=== PATIENT | female | born 2000 | race Two or more races ===

== ENCOUNTER 2022-07-31 23:51 | Emergency (ER) | payer OTHER ==
[2022-08-01 00:24] LABS: BILIRUBIN,URINE NEGATIVE (NEGATIVE); GLUCOSE, URINE (UA) NEGATIVE (NEGATIVE); KETONES,URINE (UA) NEGATIVE (NEGATIVE); LEUKOCYTE ESTERASE, URINE NEGATIVE (NEGATIVE); NITRITE,URINE NEGATIVE (NEGATIVE); OCCULT BLOOD,URINE NEGATIVE (NEGATIVE); PROTEIN,URINE NEGATIVE (NEGATIVE); UROBILINOGEN,URINE 0.2 (NORMAL) E.U./dL (NORMAL)
[2022-08-01 00:31] LABS: CLARITY,URINE CLEAR (CLEAR); HCG UR QUAL NEGATIVE
[2022-08-01] MEDS ORDERED: DICYCLOMINE 10 MG CAPSULE PO STA (01:37)
--- NOTE | 2022-08-01 01:40 | ED Physician Documentation ---
History of Present Illness - Stated complaint Stated Complaint: FEMALE - Chief complaint Chief Complaint: Abd Pain - History obtained from History obtained from: Patient - Additonal information Additional information: 21-year-old woman with history of lactose intolerance, otherwise healthy, presents with left upper quadrant abdominal cramping pain intermittent, gradual onset, for the past 4 days, worse with bending, radiating to the lower back, associated with nausea and dysuria. Patient took Motrin without any relief. Denies vomiting or diarrhea fever or hematuria. patient did have creamer this week but otherwise no dairy products. Review of Systems Ten Systems: 10 systems reviewed and negative Constitutional: denies: Fever, Chills GI: reports: Abdominal Pain, Nausea, Constipation. denies: Vomiting, Diarrhea : reports: Dysuria. denies: Hematuria PD PAST MEDICAL HISTORY - Past Medical History Past Medical History: Yes Cardiovascular: None Respiratory: None Neuro: None Endocrine/Autoimmune: None GI: None ESCAPEMENT MAKER: None : None HEENT: None Psych: Depression Musculoskeletal: None Derm: None - Past Surgical History Past Surgical History: No - Present Medications Home Medications: Ambulatory Orders Medication Instructions Recorded Confirmed Dicyclomine [Bentyl] 10 mg PO QID PRN #20 tab 08/01/22 FLUoxetine [PROzac] 40 mg PO DAILY 08/01/22 08/01/22 - Allergies Allergies/Adverse Reactions: Allergies Allergy/AdvReac Type Severity Reaction Status Date / Time No Known Drug Allergies Allergy Verified 08/01/22 00:09 - Social History Does the pt smoke?: No Smoking Status: Never smoker Does the pt drink ETOH?: Yes Does the pt have substance abuse?: No - Immunizations Immunizations are current?: Yes - POLST Patient has POLST: No PD ED PE NORMAL - Vitals Vital signs reviewed: Yes - General General: Alert and oriented X 3, No acute distress, Well developed/nourished - HEENT HEENT: Atraumatic, PERRL, EOMI - Neck Neck: Supple, no meningeal sign - Cardiac Cardiac: RRR - Respiratory Respiratory: No respiratory distress, Clear bilaterally - Abdomen Abdomen: Non tender, Non distended Results - Vitals Vitals: Vital Signs - 24 hr 08/01/22 08/01/22 00:06 00:24 Temperature 36.6 C Heart Rate 98 Respiratory 18 18 Rate Blood Pressure 154/100 H O2 Saturation 100 Oxygen O2 Source Room air - Labs Labs: Laboratory Tests 08/01/22 08/01/22 00:00 00:00 Urine Color YELLOW Urine Clarity CLEAR Urine pH 6.0 Ur Specific [place] <=1.005 Urine Protein NEGATIVE Urine Glucose (UA) NEGATIVE Urine Ketones NEGATIVE Urine Occult Blood NEGATIVE Urine Nitrite NEGATIVE Urine Bilirubin NEGATIVE Urine Urobilinogen 0.2 (NORMAL) Ur Leukocyte Esterase NEGATIVE Ur Microscopic Review NOT INDICATED Urine Culture Comments NOT INDICATED Urine HCG, Qual NEGATIVE PD MEDICAL DECISION MAKING - ED course ED course: Urinalysis and test negative. Patient with benign exam. Symptomatic care discussed. Provided Bentyl prescription and advised to follow-up with primary care practitioner. Return precautions given. Departure - Departure Disposition: Home, Self Care Clinical Impression: Abdominal cramping Condition: Good Instructions: Abdominal Pain Prescriptions: Dicyclomine [Bentyl] 10 mg PO QID PRN #20 tab PRN Reason: Abdominal Pain Comments: You are seen in the emergency department for abdominal cramping. Your urinalysis and test were negative. Please follow-up with your primary care provider. A prescription for Bentyl (dicyclomine), a medication which can help with abdominal cramping, was sent to [facility] in [place]. Please return to the emergency department if you have any new or worsening symptoms or other concerns.
[2022-08-01 01:46] VITALS: BP 136/81
== END 2022-08-01 01:48 | disposition home or self-care (01) ==
LOC: ED 23:51
DX: R10.12 Left upper quadrant pain (principal)
CPT/HCPCS: 81003; 81025; 99282; 99283; A9270; 81001; 87086